=== PATIENT | female | born 1935 | race Caucasian/White ===

== ENCOUNTER 2019-07-08 03:04 | Observation (INO) | payer MEDICARE, OTHER ==
[~2019-07-08] VITALS: Ht 157.5 cm; Wt 119.3 kg
[~2019-07-08 03:04] MED LIST: ACET325; FISH1000 PO; HYDACE5 PO; IBUP400 PO; LISI20 PO; LISI5 PO; METF500; METF500 PO; MULVITMINF PO; NAPR220 PO; VICODIN 5-3001 EACH PO
[2019-07-08 03:28] LABS: BASOPHILS ABSOLUTE AUTO 0.07 K/mm3 (0.00-0.23); BASOPHILS PERCENT AUTO 1 % (0-2); EOSINOPHILS ABSOLUTE AUTO 0.17 K/mm3 (0.00-0.68); EOSINOPHILS PERCENT AUTO 2 % (0-6); Hemoglobin 15.5 g/dL (11.5-16.0); IMMATURE GRAN ABSOLUTE AUTO 0.02 K/mm3 (0.00-0.10); IMMATURE GRAN PERCENT AUTO 0 % (0-1); LYMPHOCYTES ABSOLUTE AUTO 2.92 K/mm3 (0.84-5.20); LYMPHOCYTES PERCENT AUTO 27 % (21-46); MONOCYTES ABSOLUTE AUTO 0.79 K/mm3 (0.16-1.47); MONOCYTES PERCENT AUTO 7 % (4-13); Mean Corpuscular HGB 31.5 pg (26.0-34.0); Mean Corpuscular HGB Conc 32.3 g/dL (31.5-36.5); Mean Corpuscular Volume 98 fL (80-100); Mean Platelet Volume 9.6 fL (9.1-12.4); NEUTROPHILS ABSOLUTE AUTO 6.96 K/mm3 (1.96-9.15); NEUTROPHILS PERCENT AUTO 64 % (41-73); Platelet Count 267 K/mm3 (150-400); RDW Coefficient Variation 13.5 % (11.7-14.2); RDW Standard Deviation 49.2 fL (35.1-46.3); Red Blood Cell Count 4.92 M/mm3 (3.80-5.20); White Blood Cell Count 10.93 K/mm3 (4.00-11.30)
[2019-07-08 03:48] LABS: Alanine Aminotransfer (ALT/SGP 24 U/L (12-78); Albumin, Blood 3.8 g/dL (3.4-5.0); Albumin/Globulin Ratio 1.1 (0.8-1.8); Alk Phos 59 U/L (50-136); Anion Gap 7 mmol/L (6-16); Aspartate Aminotrans (AST/SGOT 11 U/L (12-37); Bilirubin, Total 0.4 mg/dL (0.1-1.0); Blood Urea Nitrogen 23 mg/dL (8-24); Bun/Creatinine Ratio 25.1 (12.0-20.0); CO2, Blood 27 mmol/L (21-32); Calcium, Blood 8.8 mg/dL (8.5-10.1); Chloride, Blood 107 mmol/L (98-108); Creatinine, Blood 0.92 mg/dL (0.40-1.00); Globulin, Blood 3.5 g/dL (2.2-4.0); Glomerular Filtration Rate >60 (60-); Glucose, Blood 101 mg/dL (70-99); Sodium, Blood 141 mmol/L (136-145); Total Protein, Blood 7.3 g/dL (6.4-8.2); Troponin I <0.015 ng/mL (0.000-0.040)
[2019-07-08 04:30] LABS: D-Dimer, Quantitative 0.45 mg/L FEU (0.00-0.52)
[2019-07-08] MEDS ORDERED: VITAMIN D3400 UNI2 PO (07:56)
[2019-07-08] MEDS ORDERED: Arthritis Pain650 M1 PO (07:57)
[2019-07-08] MEDS ORDERED: Acetaminophen1 EAC2 PO (07:58)
[2019-07-08] MEDS ORDERED: VICODIN ES 7.51 EACH PO (08:00)
--- NOTE | 2019-07-08 10:32 | NUR ---
RECEIEVED REPORT FROM LORI YANG RN, AT 0730. PATIENT ARRIVED TO ROOM 342 BY STRETCHER. ADMIT COMPLETED WITH THE PATIENTS ASSISTANCE.
--- NOTE | 2019-07-08 11:00 | NUR ---
Echocardiogram completed.
--- NOTE | 2019-07-08 16:47 | NUR ---
SHIFT SUMMARY THE PATIENT HAS HAD A GOOD, UNEVENTFUL SHIFT. PATIENT DENIED PAIN UNTIL MY MOST RECENT CHECK ON HER AT WHICH TIME SHE SAID THE PAIN TO HER CHEST IS CONSTANT. SHE SAID THE GI COCKTAIL WAS INEFFECTIVE. VITALS HAVE BEEN STABLE WITH A LOW GRADE TEMP NOTED THIS AFTERNOON. SHE APPROPRIATELY CALLS FOR STAFF ASSIST AND HER FAMILY ASSISTS WITH PATIENT CARE WELL. THE PATIENT CONTINUES TO HAVE FAMILY/VISITORS AT BEDSIDE. WILL CONTINUE TO MONITOR AND PROVIDE CARE NEEDED.
--- NOTE | 2019-07-09 05:33 | NUR ---
NOC SHIFT SUMMARY PT IS PLEASANT AND COOPERATIVE WITH CARE. SHE DID COMPLAIN OF SOME ONGOING PAIN IN HER CHEST WHICH WAS TREATED PER EMAR. TROPS NEGATIVE. VSS. SHE IS AAOX4, RESP EVEN AND UNLABORED. WHEN ASKED SHE RELATES SHE SLEPT WELL. SLEEP STUDY DONE THIS NIGHT. PT HAS BEEN NPO SINCE MIDNIGHT. TOLD DURING REPORT OF POSSIBLE STRESS TEST IN A.M. TELE SHOWS SR. PT APPEARS IN NO ACUTE DISTRESS. NO ACUTE CHANGE NOTED THIS SHIFT. WILL CONTINUE TO MONITOR.
[2019-07-09 06:00] LABS: BASOPHILS ABSOLUTE AUTO 0.04 K/mm3 (0.00-0.23); BASOPHILS PERCENT AUTO 1 % (0-2); EOSINOPHILS ABSOLUTE AUTO 0.08 K/mm3 (0.00-0.68); EOSINOPHILS PERCENT AUTO 1 % (0-6); Hematocrit 40.4 % (33.0-51.0); Hemoglobin 12.9 g/dL (11.5-16.0); IMMATURE GRAN ABSOLUTE AUTO 0.02 K/mm3 (0.00-0.10); IMMATURE GRAN PERCENT AUTO 0 % (0-1); LYMPHOCYTES ABSOLUTE AUTO 1.81 K/mm3 (0.84-5.20); LYMPHOCYTES PERCENT AUTO 24 % (21-46); MONOCYTES PERCENT AUTO 9 % (4-13); Mean Corpuscular HGB 31.8 pg (26.0-34.0); Mean Corpuscular HGB Conc 31.9 g/dL (31.5-36.5); Mean Corpuscular Volume 100 fL (80-100); Mean Platelet Volume 10.2 fL (9.1-12.4); NEUTROPHILS ABSOLUTE AUTO 4.95 K/mm3 (1.96-9.15); NEUTROPHILS PERCENT AUTO 65 % (41-73); Platelet Count 188 K/mm3 (150-400); RDW Coefficient Variation 13.8 % (11.7-14.2); RDW Standard Deviation 51.3 fL (35.1-46.3); Red Blood Cell Count 4.06 M/mm3 (3.80-5.20)
[2019-07-09 06:19] LABS: Alanine Aminotransfer (ALT/SGP 22 U/L (12-78); Alk Phos 45 U/L (50-136); Anion Gap 5 mmol/L (6-16); Aspartate Aminotrans (AST/SGOT 13 U/L (12-37); Bilirubin, Total 0.8 mg/dL (0.1-1.0); Blood Urea Nitrogen 21 mg/dL (8-24); Bun/Creatinine Ratio 26.3 (12.0-20.0); CO2, Blood 27 mmol/L (21-32); Calcium, Blood 8.3 mg/dL (8.5-10.1); Chloride, Blood 106 mmol/L (98-108); Glomerular Filtration Rate >60 (60-); Glucose, Blood 95 mg/dL (70-99); Potassium, Blood 4.2 mmol/L (3.5-5.5); Sodium, Blood 138 mmol/L (136-145)
[2019-07-09 09:22] LABS: Influenza A Negative (NEGATIVE); Influenza B Negative (NEGATIVE)
[2019-07-09] MEDS ORDERED: ASPI325 PO (11:02)
[2019-07-09] MEDS ORDERED: Florastor250 MG PO (11:03)
[2019-07-09] MEDS ORDERED: LEVO750 PO (11:03)
[2019-07-09] MEDS ORDERED: PANT40 PO (11:03)
--- NOTE | 2019-07-09 18:22 | NUR ---
PATIENT HAD D/C ORDERS TODAY BUT WAS HELD DUE TO HYPOXIA. PATIENT ON RA AT BASELINE AND IS NOW 87% ON RA AT REST. MAINTAINING SATS ON 2LO2. LUNGS CLEAR/DIM THROUGHOUT. FLU SWAB NEGATIVE. STARTED ON LEVAQUIN PO TODAY FOR MILD PNA. TOLERATING DIET. UP WITH FWW INDEPENDENTLY IN ROOM. REPORTS GOOD PAIN CONTROL THIS SHIFT. HOPES TO D/C HOME TOMORROW.
[2019-07-10 05:21] LABS: BASOPHILS ABSOLUTE AUTO 0.05 K/mm3 (0.00-0.23); BASOPHILS PERCENT AUTO 1 % (0-2); EOSINOPHILS ABSOLUTE AUTO 0.18 K/mm3 (0.00-0.68); EOSINOPHILS PERCENT AUTO 3 % (0-6); Hematocrit 41.6 % (33.0-51.0); Hemoglobin 13.1 g/dL (11.5-16.0); IMMATURE GRAN ABSOLUTE AUTO 0.01 K/mm3 (0.00-0.10); IMMATURE GRAN PERCENT AUTO 0 % (0-1); LYMPHOCYTES ABSOLUTE AUTO 2.26 K/mm3 (0.84-5.20); LYMPHOCYTES PERCENT AUTO 32 % (21-46); MONOCYTES ABSOLUTE AUTO 0.53 K/mm3 (0.16-1.47); MONOCYTES PERCENT AUTO 8 % (4-13); Mean Corpuscular HGB 30.9 pg (26.0-34.0); Mean Corpuscular HGB Conc 31.5 g/dL (31.5-36.5); Mean Corpuscular Volume 98 fL (80-100); Mean Platelet Volume 9.9 fL (9.1-12.4); NEUTROPHILS ABSOLUTE AUTO 3.97 K/mm3 (1.96-9.15); NEUTROPHILS PERCENT AUTO 57 % (41-73); Platelet Count 222 K/mm3 (150-400); RDW Coefficient Variation 13.3 % (11.7-14.2); RDW Standard Deviation 47.8 fL (35.1-46.3); Red Blood Cell Count 4.24 M/mm3 (3.80-5.20)
[2019-07-10 05:44] LABS: Anion Gap 7 mmol/L (6-16); Blood Urea Nitrogen 19 mg/dL (8-24); Bun/Creatinine Ratio 20.7 (12.0-20.0); CO2, Blood 27 mmol/L (21-32); Calcium, Blood 8.5 mg/dL (8.5-10.1); Chloride, Blood 106 mmol/L (98-108); Creatinine, Blood 0.92 mg/dL (0.40-1.00); Glomerular Filtration Rate >60 (60-); Glucose, Blood 89 mg/dL (70-99); Sodium, Blood 140 mmol/L (136-145)
[2019-07-10] MEDS ORDERED: FURO20 PO (12:01)
[2019-07-10] MEDS ORDERED: GUAI600T33 PO (12:02)
== END 2019-07-10 12:54 | disposition home or self-care (01) ==
LOC: ER 03:04 → MEDS 03:05 → ENPENDDIS 07-09 10:56 → MEDS 07-10 12:54
PROVIDERS: Emergency Medicine; ADMIT Family Medicine
DX: R07.89 Other chest pain (principal); J18.9 Pneumonia, unspecified organism; J91.8 Pleural effusion in other conditions classified elsewhere; R01.1 Cardiac murmur, unspecified; I51.89 Other ill-defined heart diseases; R09.1 Pleurisy; I87.2 Venous insufficiency (chronic) (peripheral); I45.10 Unspecified right bundle-branch block; G89.29 Other chronic pain; M17.0 Bilateral primary osteoarthritis of knee; F41.9 Anxiety disorder, unspecified; F11.20 Opioid dependence, uncomplicated; E66.01 Morbid (severe) obesity due to excess calories; Z68.42 Body mass index [BMI] 45.0-49.9, adult; Z87.891 Personal history of nicotine dependence; Z87.442 Personal history of urinary calculi; Z85.42 Personal history of malignant neoplasm of other parts of uterus; Z85.850 Personal history of malignant neoplasm of thyroid; Z90.49 Acquired absence of other specified parts of digestive tract; Z90.710 Acquired absence of both cervix and uterus; Z79.1 Long term (current) use of non-steroidal anti-inflammatories (NSAID); Z79.82 Long term (current) use of aspirin; Z79.899 Other long term (current) drug therapy; Z88.1 Allergy status to other antibiotic agents; Z88.4 Allergy status to anesthetic agent; Z88.8 Allergy status to other drugs, medicaments and biological substances; Z91.048 Other nonmedicinal substance allergy status
CPT/HCPCS: 36415; 71045; 71046; 80048; 80053; 83690; 83880; 84484; 85025; 85379; 87070; 87081; 87804; 90686; 93005; 93010; 93306; 94640; 94760; 94761; 94762; 96372; 96374; 96375; 99285-25; A9270-GY; G0008; G0378; J1650; J1940; J2270; J2405

== ENCOUNTER → 2022-04-21 | Outpatient (CLI) | payer MEDICARE, OTHER ==
[~2022-04-21] MED LIST changes: +ASPI325 PO; +Acetaminophen1 EAC2 PO; +Arthritis Pain650 M1 PO; +FURO20 PO; +Florastor250 MG PO; +GUAI600T33 PO; +LEVO750 PO; +PANT40 PO; +VICODIN ES 7.51 EACH PO; +VITAMIN D3400 UNI2 PO
== END | disposition home or self-care (01) ==
LOC: LAB SHORT 13:12 → LAB 13:12
PROVIDERS: Family Medicine
DX: G89.4 Chronic pain syndrome (principal); Z79.899 Other long term (current) drug therapy
CPT/HCPCS: G0480